=== PATIENT | male | born 1950 | race Caucasian/White ===

== ENCOUNTER → 2017-02-27 | Outpatient (CLI) | payer BC | LOC: RAD 12:06 | PROVIDERS: ATTEND Urology | DX: N20.0 Calculus of kidney (principal); R31.29 Other microscopic hematuria | CPT/HCPCS: 74178; 82565 ==

== ENCOUNTER → 2017-03-30 | Outpatient (CLI) | payer BC ==
[2017-03-30 09:38] LABS: ALANINE AMINOTRANSFERASE 33 U/L (21-72); ALKALINE PHOSPHATASE 63 U/L (38-126); ANION GAP 10 (5-19); ASPARTATE AMINO TRANSFERASE 26 U/L (17-59); BILIRUBIN,DIRECT 0.4 mg/dL (0.0-0.4); BILIRUBIN,TOTAL 1.1 mg/dL (0.2-1.3); BLOOD UREA NITROGEN 18 mg/dL (7-20); CALCIUM 9.3 mg/dL (8.4-10.2); CARBON DIOXIDE 27 mmol/L (22-30); CHLORIDE 104 mmol/L (98-107); CREATININE RESULT 0.96 mg/dL (0.52-1.25); Direct HDL 39 mg/dL (>40); GLUCOSE 119 mg/dL (75-110); POTASSIUM 4.8 mmol/L (3.6-5.0); SODIUM 141.4 mmol/L (137-145); TOTAL PROTEIN 6.5 g/dL (6.3-8.2); TRIGLYCERIDES 273 mg/dL (<150)
[2017-03-30 09:50] LABS: DIRECT LDL 59 mg/dL (<100)
[2017-03-30 09:53] LABS: VLDL CHOLESTEROL 54.6 mg/dL (10-31)
== END ==
LOC: OD 08:29
PROVIDERS: ATTEND Internal Medicine
DX: E78.5 Hyperlipidemia, unspecified (principal); E11.9 Type 2 diabetes mellitus without complications; R10.9 Unspecified abdominal pain; E55.9 Vitamin D deficiency, unspecified; R53.83 Other fatigue
CPT/HCPCS: 36415; 80053; 80061; 82043; 82306; 83036; 84443

== ENCOUNTER 2017-08-11 07:35 | Day surgery (SDC) | payer MEDICARE, BC ==
[~2017-08-11 07:35] MED LIST: EPINEPHRINE INJ 1 MG/10 ML DISP.SYRIN ONE; FENTANYL CITRATE INJ/PF 100 MCG/2 ML AMPUL ONE; FLUMAZENIL INJ 0.5 MG/5 ML VIAL ONE; GLUCAGON,HUMAN RECOMB 1 MG INJ ONE; GLYCOPYRROLATE INJ 0.4 MG/2 ML VIAL ONE; MIDAZOLAM 2 MG/2 ML INJ ONE; NALOXONE HCL INJ/PF 0.4 MG/1 ML SDV ONE; ONDANSETRON HCL INJ/PF 4 MG/2 ML SDV ONE
[2017-08-11 08:06] LABS: HEMATOCRIT 41.9 % (37.9-51.0); HEMOGLOBIN 14.9 g/dL (13.5-17.0); HGB HCT DIFFERENCE 2.8; MEAN CORPUSCULAR HEMOGLOBIN 30.8 pg (27.0-33.4); MEAN CORPUSCULAR HGB CONC 35.5 g/dL (32.0-36.0); MEAN CORPUSCULAR VOLUME 87 fl (80-97); RED BLOOD COUNT 4.84 10^6/uL (4.35-5.55); RED CELL DISTRIBUTION WIDTH 13.2 % (11.5-14.0); WHITE BLOOD COUNT 4.7 10^3/uL (4.0-10.5)
[2017-08-11 08:22] LABS: ALANINE AMINOTRANSFERASE 64 U/L (21-72); ALBUMIN 3.8 g/dL (3.5-5.0); ALKALINE PHOSPHATASE 58 U/L (38-126); ANION GAP 9 (5-19); ASPARTATE AMINO TRANSFERASE 50 U/L (17-59); BILIRUBIN,DIRECT 0.5 mg/dL (0.0-0.4); BILIRUBIN,TOTAL 1.4 mg/dL (0.2-1.3); BLOOD UREA NITROGEN 11 mg/dL (7-20); CALCIUM 9.6 mg/dL (8.4-10.2); CARBON DIOXIDE 28 mmol/L (22-30); CHLORIDE 103 mmol/L (98-107); CREATININE RESULT 0.77 mg/dL (0.52-1.25); GLUCOSE 160 mg/dL (75-110); POTASSIUM 4.3 mmol/L (3.6-5.0); TOTAL PROTEIN 6.3 g/dL (6.3-8.2)
[2017-08-11] MEDS: MIDAZOLAM 2 MG/2 ML INJ ONE ×2 (09:58→10:08)
--- NOTE | 2017-08-11 10:45 | Operative Report ---
Operative Report DATE OF SURGERY: 08/11/17 PREOPERATIVE DIAGNOSIS: Screening for colon malignancy. POSTOPERATIVE DIAGNOSIS: Right colon polyp. Sigmoid diverticulosis. OPERATION: Colonoscopy with snare polypectomy of right colon polyp. SURGEON: HEYDI NOEL ANESTHESIA: Moderate Sedation TISSUE REMOVED OR ALTERED: Right colon polyp COMPLICATIONS: None ESTIMATED BLOOD LOSS: Minimal INTRAOPERATIVE FINDINGS: Half centimeter sessile polyp at the mid right colon. Scattered small diverticuli of the sigmoid colon. PROCEDURE: Informed consent was obtained. Patient was brought to the endoscopy suite. IV sedation with Versed and fentanyl was administered. Digital rectal exam revealed no palpable perianal masses. Endoscope was passed via the patient's anus it was fed to the cecum. Bowel prep was good. Visualization was good. Cecum appeared normal. At the mid right colon there was 1/2 cm sessile polyp which was snare polypectomy need and the specimen retrieved. Remainder of the right colon appeared normal. Transverse colon appeared normal. In colon. Sigmoid colon has scattered diverticuli but otherwise it appeared normal. The rectum appeared normal. Patient tolerated procedure well with no apparent complications and was taken to the recovery area in stable condition. Status post right colon polyp snare polypectomy. Will await biopsy report. Patient was noted on preoperative laboratory testing with elevated total bilirubin at 1.4 with a direct bilirubin of 0.5 with otherwise normal liver function studies. In light of this abnormality will obtain a right upper quadrant ultrasound.
--- NOTE | 2017-08-11 10:47 | PDOC DISCHARGE SUMMARY ---
Discharge Summary (SDC) - Discharge Final Diagnosis: Right colon polyp. Sigmoid diverticulosis. Hyperbilirubinemia. Date of Surgery: 08/11/17 Discharge Date: 08/11/17 Condition: Good Treatment or Instructions: Colonoscopy with snare polypectomy of right colon polyp. May discharge patient home when met discharge criteria. Follow-up with me in 2 weeks. Arrange liver ultrasound as an outpatient prior to follow-up. Referrals: BARB BERMUDEZ MD [Primary Care Provider] - Discharge Diet: As Tolerated Discharge Activity: Activity As Tolerated Report the Following to Your Physician Immediately: Increase in Pain, Unusual Bleeding
[2017-08-11 11:47] VITALS: BP 109/61
== END 2017-08-11 11:37 | disposition home or self-care (01) ==
LOC: END 07:35
PROVIDERS: ATTEND Surgery
PROC: 0DBF8ZX Excision of Right Large Intestine, Via Natural or Artificial Opening Endoscopic, Diagnostic (ICD-10-PCS; principal; 2017-08-11 09:15)
DX: Z12.11 Encounter for screening for malignant neoplasm of colon (principal); K63.5 Polyp of colon; K57.30 Diverticulosis of large intestine without perforation or abscess without bleeding; I10 Essential (primary) hypertension; I25.10 Atherosclerotic heart disease of native coronary artery without angina pectoris; Z79.899 Other long term (current) drug therapy; Z79.82 Long term (current) use of aspirin
CPT/HCPCS: 45385; 36415; 85027; 80053; 88305 ×2; J2250; J3010; J0171; J1610; J2310; J2405; J3490

== ENCOUNTER 2018-08-21 16:13 | Observation (INO) | payer MEDICARE, BC ==
--- NOTE | 2018-08-21 16:35 | ER Document Report ---
ED Medical Screen (RME) - General Chief Complaint: Chest Pain Stated Complaint: CHEST PAIN Time Seen by Provider: 08/21/18 16:33 Mode of Arrival: Ambulatory Information source: Patient TRAVEL OUTSIDE OF THE [place] IN LAST 30 DAYS: No - HPI Patient complains to provider of: cp Onset: Other - pt with extensive cardiac hx with intermittent CP for the past wk. Has taken ASA earlier today - Related Data Allergies/Adverse Reactions: No Known Allergies Allergy (Verified 08/21/18 16:14) Past Medical History - Past Medical History Cardiac Medical History: Reports: Hx Heart Attack, Hx Hypertension Denies: Hx Coronary Artery Disease Pulmonary Medical History: Denies: Hx Asthma, Hx Bronchitis, Hx COPD, Hx Pneumonia Neurological Medical History: Denies: Hx Cerebrovascular Accident, Hx Seizures Musculoskeltal Medical History: Denies Hx Arthritis - Immunizations Hx Diphtheria, Pertussis, Tetanus Vaccination: Yes Physical Exam - Vital signs Vitals: Temp Pulse Resp BP Pulse Ox 98.5 F 61 16 119/47 L 94 08/21/18 16:24 08/21/18 16:24 08/21/18 16:24 08/21/18 16:24 08/21/18 16:24 Course - Vital Signs Vital signs: Temp Pulse Resp BP Pulse Ox 98.5 F 61 16 119/47 L 94 08/21/18 16:24 08/21/18 16:24 08/21/18 16:24 08/21/18 16:24 08/21/18 16:24 Doctor's Discharge - Discharge Referrals: HEYDI NOEL MD [Primary Care Provider] - Follow up as needed
[2018-08-21 17:02] LABS: ABSOLUTE EOSINOPHILS # (AUTO) 0.1 10^3/uL (0.0-0.6); ABSOLUTE LYMPHOCYTES (AUTO) 1.7 10^3/uL (0.5-4.7); ABSOLUTE MONOCYTES (AUTO) 0.5 10^3/uL (0.1-1.4); ABSOLUTE NEUT (AUTO) 4.1 10^3/uL (1.7-8.2); BASOPHILS % (AUTO) 0.4 % (0-2); EOSINOPHILS % (AUTO) 2.2 % (0-6); HEMATOCRIT 45.4 % (37.9-51.0); HEMOGLOBIN 15.8 g/dL (13.5-17.0); LYMPHOCYTES % (AUTO) 26.6 % (13-45); MEAN CORPUSCULAR HEMOGLOBIN 29.6 pg (27.0-33.4); MEAN CORPUSCULAR HGB CONC 34.8 g/dL (32.0-36.0); MEAN CORPUSCULAR VOLUME 85 fl (80-97); MONOCYTES % (AUTO) 7.1 % (3-13); PLATELET COUNT 133 10^3/uL (150-450); RED BLOOD COUNT 5.34 10^6/uL (4.35-5.55); RED CELL DISTRIBUTION WIDTH 13.4 % (11.5-14.0); SEGMENTED NEUTROPHILS % (AUTO) 63.7 % (42-78); TOTAL CELLS COUNTED % (AUTO) 100 %; WHITE BLOOD COUNT 6.4 10^3/uL (4.0-10.5)
[2018-08-21 17:18] LABS: ALANINE AMINOTRANSFERASE 41 U/L (21-72); ALBUMIN 4.2 g/dL (3.5-5.0); ALKALINE PHOSPHATASE 71 U/L (38-126); ANION GAP 8 (5-19); ASPARTATE AMINO TRANSFERASE 38 U/L (17-59); BILIRUBIN,DIRECT 0.3 mg/dL (0.0-0.4); BILIRUBIN,TOTAL 1.3 mg/dL (0.2-1.3); BLOOD UREA NITROGEN 25 mg/dL (7-20); CALCIUM 9.7 mg/dL (8.4-10.2); CARBON DIOXIDE 33 mmol/L (22-30); CHLORIDE 102 mmol/L (98-107); CREATINE KINASE 277 U/L (55-170); GLUCOSE 143 mg/dL (75-110); POTASSIUM 4.9 mmol/L (3.6-5.0); TOTAL PROTEIN 7.3 g/dL (6.3-8.2)
[2018-08-21 17:30] LABS: CREATINE KINASE MB 3.84 ng/mL (<4.55)
[2018-08-21 17:33] LABS: TROPONIN I 0.059 ng/mL
--- NOTE | 2018-08-21 17:36 | RADIOLOGY REPORT (SQ) ---
EXAM DESCRIPTION: CHEST 2 VIEWS COMPLETED DATE/TIME: 08/21/2018 5:11 pm REASON FOR STUDY: cp COMPARISON: None. EXAM PARAMETERS: NUMBER OF VIEWS: two views TECHNIQUE: Digital Frontal and Lateral radiographic views of the chest acquired. RADIATION DOSE: NA LIMITATIONS: none FINDINGS: LUNGS AND PLEURA: No opacities, masses or pneumothorax. No pleural effusion. MEDIASTINUM AND HILAR STRUCTURES: No masses or contour abnormalities. HEART AND VASCULAR STRUCTURES: Heart normal size. No evidence for failure. BONES: No acute findings. HARDWARE: CABG. OTHER: No other significant finding. IMPRESSION: NO ACUTE RADIOGRAPHIC FINDING IN THE CHEST. TECHNICAL DOCUMENTATION: JOB ID: [id number] [id number] 2010 [employer]- All Rights Reserved Reading location - IP/workstation name: [facility]
--- NOTE | 2018-08-21 18:06 | ER Document Report ---
ED Cardiac <THOR LANCASTER - Last Filed: 08/21/18 19:33> - General Mode of Arrival: Ambulatory TRAVEL OUTSIDE OF THE [place] IN LAST 30 DAYS: No <MERY STEWART - Last Filed: 08/21/18 20:21> - General Chief Complaint: Chest Pain Stated Complaint: CHEST PAIN Time Seen by Provider: 08/21/18 16:33 Notes: [age]-year-old male patient reports about a 2-week history of exertional chest pain. There is no discomfort when he is at rest. There is no discomfort with walking. He did notice pain with exertion such as trying to push a push mower, or doing any lifting. He did have a heart attack in 2000 and had a 6 vessel bypass at that time in [place]. 3 years ago he had chest pain and had one stent placed at [facility]. There is no particular event that prompted him to come to the emergency room today. (THOR LANCASTER) - Related Data Allergies/Adverse Reactions: No Known Allergies Allergy (Verified 08/21/18 16:14) Past Medical History - Social History Smoking Status: Former Smoker Frequency of alcohol use: None - Quit 30 years ago <THOR LANCASTER - Last Filed: 08/21/18 19:33> - General Information source: Patient - Social History Smoking Status: Former Smoker - quit 30 years ago Chew tobacco use (# tins/day): No Frequency of alcohol use: None Drug Abuse: None Lives with: Family Family History: Reviewed & Not Pertinent Patient has suicidal ideation: No Patient has homicidal ideation: No - Past Medical History Cardiac Medical History: Reports: Hx Heart Attack, Hx Hypertension Past Surgical History: Reports: Hx Cardiac Catheterization - Stent, Hx Cardiac Surgery - Open Heart Surgery, bypass x6, Hx Cholecystectomy - Immunizations Hx Diphtheria, Pertussis, Tetanus Vaccination: Yes <MERY STEWART - Last Filed: 08/21/18 20:21> Review of Systems - Review of Systems Constitutional: No symptoms reported EENT: No symptoms reported Cardiovascular: See HPI, Chest pain Respiratory: See HPI, Short of breath Gastrointestinal: No symptoms reported Genitourinary: No symptoms reported Male Genitourinary: No symptoms reported Musculoskeletal: No symptoms reported Skin: No symptoms reported Hematologic/Lymphatic: No symptoms reported Neurological/Psychological: No symptoms reported -: Yes All other systems reviewed and negative <MERY STEWART - Last Filed: 08/21/18 20:21> Physical Exam <THOR LANCASTER - Last Filed: 08/21/18 19:33> <MERY STEWART - Last Filed: 08/21/18 20:21> - Vital signs Vitals: Temp Pulse Resp BP Pulse Ox 98.5 F 61 16 119/47 L 94 08/21/18 16:24 08/21/18 16:24 08/21/18 16:24 08/21/18 16:24 08/21/18 16:24 - Notes Notes: Physical Exam: General: Alert, appears well. HEENT: Normocephalic. Atraumatic. PERRL. Extraocular movements intact. Oropharynx clear. Neck: Supple. Non-tender. Respiratory: No respiratory distress. Clear and equal breath sounds bilaterally. Cardiovascular: Regular rate and rhythm. Healed old medial sternotomy scar consistent with surgical history. Abdominal: Obese. Non-tender. No distension. Normal Bowel Sounds. Back: Non-tender. No deformity or step off. Extremities: Moves all four extremities. Upper extremities: Normal inspection. Normal ROM. Lower extremities: Normal inspection. No edema. Normal ROM. Neurological: Normal cognition. AAOx4. Normal speech. Psychological: Normal affect. Normal Mood. Skin: Warm. Dry. Normal color. (MERY STEWART) Course - Laboratory Result Diagrams: 08/21/18 16:45 08/21/18 16:45 - Diagnostic Test Radiology reviewed: Image reviewed, Reports reviewed - Chest x-ray does not show any acute abnormality - EKG Interpretation by Me EKG shows normal: Sinus rhythm, [place], Intervals, QRS Complexes, ST-T Waves Rate: Normal - 65 Rhythm: NSR When compared to previous EKG there are: Previous EKG unavailable - Consults Dr. Andino Time consulted: 19:30 Consulted provider: will come to ER <THOR LANCASTER - Last Filed: 08/21/18 19:33> - Laboratory Result Diagrams: 08/21/18 16:45 08/21/18 16:45 <MERY STEWART - Last Filed: 08/21/18 20:21> - Vital Signs Vital signs: Temp Pulse Resp BP Pulse Ox 98.5 F 61 20 125/63 93 08/21/18 16:24 10/13/18 16:24 08/21/18 17:13 08/21/18 17:13 08/21/18 17:13 - Laboratory Laboratory results interpreted by me: 08/21/18 08/21/18 16:45 16:45 Plt Count 133 L Carbon Dioxide 33 H BUN 25 H Glucose 143 H Creatine Kinase 277 H Discharge - Discharge Admitting Provider: Hospitalist Unit Admitted: Telemetry <THOR LANCASTER - Last Filed: 08/21/18 19:33> <MERY STEWART - Last Filed: 08/21/18 20:21> - Discharge Clinical Impression: Exertional chest pain Coronary artery disease Qualifiers: Coronary Disease-Associated Artery/Lesion type: unspecified vessel or lesion type [place] vs. transplanted heart: [place] heart Associated angina: angina presence unspecified Qualified Code(s): I25.10 - Atherosclerotic heart disease of [place] coronary artery without angina pectoris Condition: Stable Disposition: ADMITTED OBSERVATION Scribe Attestation: 08/21/18 19:29 I personally performed the services described in the documentation, reviewed and edited the documentation which was dictated to the scribe in my presence, and it accurately records my words and actions. (THOR LANCASTER) Scribe Documentation - Scribe Written by Johne:: Michel Modi, 08/21/20182020 acting as scribe for :: Tana <MERY STEWART - Last Filed: 08/21/18 20:21>
[2018-08-21] MEDS ORDERED: LACTULOSE SYRUP 20 GM/30 ML UDCUP PO ONE ×2 (19:33→22:15)
[2018-08-21] MEDS ORDERED: MAG HYDROX/AL HYDROX/SIMETH SUSP 30 ML UDCUP PO PRN (19:34)
[2018-08-21] MEDS ORDERED: NITROGLYCERIN 0.4 MG/TAB 25 TAB/BOTTLE SL PRN (19:34)
--- NOTE | 2018-08-21 20:25 | PDOC H&P ---
History of Present Illness Admission Date/PCP: 08/21/18 19:38 KOLTON VALENCIA MD Patient complains of: Chest pain History of Present Illness: MARIAM ALFARO is a 68 year old male with a past medical history of hypertriglyceridemia, obesity, coronary artery disease status post 6 vessel bypass graft 2000 and subsequent stent 3 years ago. Patient presents with 3 weeks of increasing frequency and intensity of exertional chest pain which is 3 out of 5 intensity, radiating to the neck, occurring while pushing a mower or using a trailer bre. Symptoms are associated with some diaphoresis, no palpitations, nausea vomiting or shortness of breath. He denies recent change in medications and otherwise feels well. In the emergency room he has an unremarkable workup and is referred to the hospitalist for evaluation. Per the patient his last cardiac evaluation was an unremarkable Cardiolite stress test 18 months ago with his dock manager Dr. Domingo. Past Medical History Cardiac Medical History: Reports: Myocardial Infarction, Hypertension Denies: Coronary Artery Disease Pulmonary Medical History: Denies: Asthma, Bronchitis, Chronic Obstructive Pulmonary Disease (COPD), Pneumonia Neurological Medical History: Denies: Seizures Musculoskeltal Medical History: Denies: Arthritis Hematology: Denies: Anemia Past Surgical History Past Surgical History: Reports: Cardiac Catheterization - Stent, Cholecystectomy , Coronary Artery Bypass Graft, Coronary Stent Social History Information Source: Patient Lives with: Spouse/Significant other Smoking Status: Former Smoker Frequency of Alcohol Use: None Hx Recreational Drug Use: No Drugs: None - Advance Directive Resuscitation Status: Full Code Family History Family History: CAD Parental Family History Reviewed: Yes Children Family History Reviewed: Yes Sibling(s) Family History Reviewed.: Yes Medication/Allergy Home Medications: Amlodipine Besylate/Benazepril [Amlodipine-Benazepril 10-40 mg] 1 cap PO DAILY 08/11/17 Aspirin [Aspirin EC] 81 mg PO DAILY 08/11/17 Carbamazepine [Tegretol] 200 mg PO PRN PRN 08/11/17 Curamin 1 tab PO TID 08/11/17 Ergocalciferol (Vitamin D2) [Vitamin D2] 50,000 unit PO ASDIR PRN 08/11/17 Fish Oil/Dha/Epa [Fish Oil 1,200 mg Fish Oil] 1 each PO DAILY 08/11/17 Gabapentin 800 mg PO TID 08/11/17 Hydrochlorothiazide 25 mg PO DAILY 08/11/17 Indomethacin [Indocin 25 mg Capsule] 25 mg PO PRN PRN 08/11/17 Isosorbide Mononitrate [Isosorbide Mononitrate ER] 60 mg PO DAILY 08/11/17 Magnesium Oxide [Magnesium] 600 mg PO DAILY 08/11/17 Metoprolol Succinate 50 mg PO DAILY 08/11/17 Mucus Relief 1 tab PO PRN PRN 08/11/17 Multivitamin [Multivitamins] 1 each PO DAILY 08/11/17 Nitroglycerin [Nitrostat] 0.4 mg SL ASDIR PRN 08/11/17 Pantoprazole Sodium [Protonix] 40 mg PO DAILY 08/11/17 Paroxetine HCl [Paxil] 10 mg PO DAILY 08/11/17 Tramadol HCl 50 mg PO PRN PRN 08/11/17 Allergies/Adverse Reactions: No Known Allergies Allergy (Verified 08/21/18 16:14) Review of Systems Constitutional: ABSENT: chills, fever(s), headache(s), weight gain, weight loss Eyes: ABSENT: visual disturbances Ears: ABSENT: hearing changes Cardiovascular: ABSENT: chest pain, dyspnea on exertion, edema, orthropnea, palpitations Respiratory: ABSENT: cough, hemoptysis Gastrointestinal: ABSENT: abdominal pain, constipation, diarrhea, hematemesis, hematochezia, nausea, vomiting Genitourinary: ABSENT: dysuria, hematuria Musculoskeletal: ABSENT: joint swelling Integumentary: ABSENT: rash, wounds Neurological: ABSENT: abnormal gait, abnormal speech, confusion, dizziness, focal weakness, syncope Psychiatric: ABSENT: anxiety, depression, homidical ideation, suicidal ideation Endocrine: ABSENT: cold intolerance, heat intolerance, polydipsia, polyuria Hematologic/Lymphatic: ABSENT: easy bleeding, easy bruising Physical Exam Vital Signs: Temp Pulse Resp BP Pulse Ox 98.5 F 61 20 125/63 93 08/21/18 16:24 08/21/18 16:24 08/21/18 17:13 08/21/18 17:13 08/21/18 17:13 General appearance: PRESENT: no acute distress, cooperative, morbidly obese, well-developed, well-nourished Head exam: PRESENT: atraumatic, normocephalic Eye exam: PRESENT: conjunctiva pink, EOMI, PERRLA. ABSENT: scleral icterus Ear exam: PRESENT: normal external ear exam Mouth exam: PRESENT: moist, tongue midline Neck exam: ABSENT: carotid bruit, JVD, lymphadenopathy, thyromegaly Respiratory exam: PRESENT: clear to auscultation aubrey. ABSENT: rales, rhonchi, wheezes Cardiovascular exam: PRESENT: RRR. ABSENT: diastolic murmur, rubs, systolic murmur Pulses: PRESENT: normal dorsalis pedis pul Vascular exam: PRESENT: normal capillary refill GI/Abdominal exam: PRESENT: normal bowel sounds, soft. ABSENT: distended, guarding, mass, organolmegaly, rebound, tenderness Rectal exam: PRESENT: deferred Extremities exam: PRESENT: full ROM. ABSENT: calf tenderness, clubbing, pedal edema Neurological exam: PRESENT: alert, awake, oriented to person, oriented to place , oriented to time, oriented to situation, CN II-XII grossly intact. ABSENT: motor sensory deficit Psychiatric exam: PRESENT: appropriate affect, normal mood. ABSENT: homicidal ideation, suicidal ideation Skin exam: PRESENT: dry, intact, warm. ABSENT: cyanosis, rash Results Impressions: Chest X-Ray 08/21/18 16:33 IMPRESSION: NO ACUTE RADIOGRAPHIC FINDING IN THE CHEST. Assessment & Plan - Diagnosis (1) Unstable angina Is this a current diagnosis for this admission?: Yes Plan: Chest pain care set, nitroglycerin as needed, evaluate risks for medical management of coronary artery disease. Cardiolite stress test, (2) Dyslipidemia Is this a current diagnosis for this admission?: Yes Plan: Statin, follow-up lipid profile (3) Hyperglycemia Is this a current diagnosis for this admission?: Yes Plan: Concern for undiagnosed diabetes, follow-up A1c (4) Coronary artery disease Qualifiers: Coronary Disease-Associated Artery/Lesion type: unspecified vessel or lesion type [place] vs. transplanted heart: [place] heart Associated angina: angina presence unspecified Qualified Code(s): I25.10 - Atherosclerotic heart disease of [place] coronary artery without angina pectoris Is this a current diagnosis for this admission?: Yes Plan: Please see #1, consult patient's dock manager Dr. Domingo - Time Time Spent: 30 to 50 Minutes
--- NOTE | 2018-08-21 20:51 | EKG REPORT ---
SEVERITY:- NORMAL ECG - SINUS RHYTHM : Confirmed by: Loretta Domingo MD 21-Aug-2018 20:50:57
[2018-08-21] MEDS: GABAPENTIN 400 MG CAPSULE PO SCH (21:45)
[2018-08-21 23:37] LABS: CREATINE KINASE MB 2.89 ng/mL (<4.55); TROPONIN I 0.064 ng/mL
[2018-08-22 05:44] LABS: ABSOLUTE EOSINOPHILS # (AUTO) 0.2 10^3/uL (0.0-0.6); ABSOLUTE LYMPHOCYTES (AUTO) 1.9 10^3/uL (0.5-4.7); ABSOLUTE MONOCYTES (AUTO) 0.6 10^3/uL (0.1-1.4); BASOPHILS % (AUTO) 0.5 % (0-2); EOSINOPHILS % (AUTO) 3.6 % (0-6); HEMATOCRIT 43.9 % (37.9-51.0); HEMOGLOBIN 15.2 g/dL (13.5-17.0); LYMPHOCYTES % (AUTO) 41.1 % (13-45); MEAN CORPUSCULAR HEMOGLOBIN 29.3 pg (27.0-33.4); MEAN CORPUSCULAR HGB CONC 34.7 g/dL (32.0-36.0); MEAN CORPUSCULAR VOLUME 85 fl (80-97); MONOCYTES % (AUTO) 12.1 % (3-13); PLATELET COUNT 110 10^3/uL (150-450); RED CELL DISTRIBUTION WIDTH 13.5 % (11.5-14.0); SEGMENTED NEUTROPHILS % (AUTO) 42.7 % (42-78); TOTAL CELLS COUNTED % (AUTO) 100 %; WHITE BLOOD COUNT 4.6 10^3/uL (4.0-10.5)
[2018-08-22 06:00] LABS: ANION GAP 10 (5-19); BLOOD UREA NITROGEN 20 mg/dL (7-20); CALCIUM 9.5 mg/dL (8.4-10.2); CARBON DIOXIDE 27 mmol/L (22-30); CHLORIDE 105 mmol/L (98-107); CHOLESTEROL 161.99 mg/dL (0-200); CREATINE KINASE 246 U/L (55-170); GLUCOSE 121 mg/dL (75-110); POTASSIUM 4.2 mmol/L (3.6-5.0); SODIUM 141.9 mmol/L (137-145); TRIGLYCERIDES 221 mg/dL (<150)
[2018-08-22 06:11] LABS: DIRECT LDL 72 mg/dL (<100)
[2018-08-22 06:13] LABS: CREATINE KINASE MB 2.63 ng/mL (<4.55); TROPONIN I 0.049 ng/mL
[2018-08-22 06:16] LABS: VLDL CHOLESTEROL 44.2 mg/dL (10-31)
[2018-08-22] MEDS: GABAPENTIN 400 MG CAPSULE PO SCH ×3 (06:46→21:32)
[2018-08-22] MEDS: METOPROLOL SUCCINATE 50 MG TAB.SR.24H PO SCH (09:37)
[2018-08-22] MEDS: HYDROCHLOROTHIAZIDE 25 MG TABLET PO SCH (09:40)
[2018-08-22] MEDS: BENAZEPRIL HCL 20 MG TABLET PO SCH (09:40)
[2018-08-22] MEDS: MAGNESIUM OXIDE 400 MG TABLET PO SCH (09:40)
[2018-08-22] MEDS: LANSOPRAZOLE 30 MG TAB.RAP.DR PO SCH (09:41)
[2018-08-22] MEDS: ASPIRIN 81 MG TABLET, ENT COATED PO SCH (09:41)
[2018-08-22] MEDS: ISOSORBIDE MONONITRATE 30 MG TAB.ER.24H PO SCH (09:41)
[2018-08-22] MEDS ORDERED: (PENDING PHARMACY ID) (Amlodipine Besylate/Benazepril [Amlodipine-Benazepril 10-40 Mg] 1 C PO SCH (10:00)
[2018-08-22] MEDS ORDERED: AMLODIPINE BESYLATE 10 MG TABLET PO SCH (10:00)
[2018-08-22 11:34] LABS: CREATINE KINASE MB 2.66 ng/mL (<4.55); TROPONIN I 0.036 ng/mL
--- NOTE | 2018-08-22 16:02 | PDOC CONSULTATION ---
Consultation Consult Date: 08/22/18 Attending physician:: INO CASANOVA Consult reason:: Chest pain History of Present Illness Admission Date/PCP: 08/21/18 19:38 OKLTON VALENCIA MD Patient complains of: Chest pain History of Present Illness: MARIAM ALFARO is a 68 year old male with a past medical history of hypertriglyceridemia, obesity, coronary artery disease status post 6 vessel bypass graft 2000 and subsequent stent 3 years ago. Patient presents with 3 weeks of increasing frequency and intensity of exertional chest pain which is 3 out of 5 intensity, radiating to the neck, occurring while pushing a mower or using a trailer bre. Symptoms are associated with some diaphoresis, no palpitations, nausea vomiting or shortness of breath. He denies recent change in medications and otherwise feels well. In the emergency room he has an unremarkable workup and is referred to the hospitalist for evaluation. 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 Domingo. This history was reviewed and confirmed. Patient admits to history of snoring. Patient has no recent sleep evaluation. Discussed association of sleep apnea with increased cardiovascular event risk. Past Medical History Cardiac Medical History: Reports: Myocardial Infarction, Hypertension Denies: Coronary Artery Disease Pulmonary Medical History: Denies: Asthma, Bronchitis, Chronic Obstructive Pulmonary Disease (COPD), Pneumonia Neurological Medical History: Denies: Seizures Musculoskeltal Medical History: Denies: Arthritis Psychiatric Medical History: Denies: Depression Hematology: Denies: Anemia Past Surgical History Past Surgical History: Reports: Cardiac Catheterization - Stent, Cholecystectomy , Coronary Artery Bypass Graft, Coronary Stent Social History Information Source: Patient Lives with: Spouse/Significant other Smoking Status: Former Smoker Last Time Smoked: 11/09/1989 Frequency of Alcohol Use: None Hx Recreational Drug Use: No Drugs: None Hx Prescription Drug Abuse: No - Advance Directive Resuscitation Status: Full Code Surrogate healthcare decision maker:: Patient's is the surrogate decision-maker Family History Family History: CAD Parental Family History Reviewed: Yes Children Family History Reviewed: Yes Sibling(s) Family History Reviewed.: Yes - Multiple family members have premature CAD. Medication/Allergy Home Medications: Amlodipine Besylate/Benazepril [Amlodipine-Benazepril 10-40 mg] 1 cap PO DAILY 08/11/17 Aspirin [Aspirin EC] 81 mg PO DAILY 08/11/17 Ergocalciferol (Vitamin D2) [Vitamin D2] 50,000 unit PO FINNEY@1000 PRN 08/11/17 Fish Oil/Dha/Epa [Fish Oil 1,200 mg Fish Oil] 1 each PO DAILY 08/11/17 Gabapentin 800 mg PO TID 08/11/17 Hydrochlorothiazide 25 mg PO DAILY 08/11/17 Isosorbide Mononitrate [Isosorbide Mononitrate ER] 60 mg PO DAILY 08/11/17 Magnesium Oxide [Magnesium] 600 mg PO DAILY 08/11/17 Metoprolol Succinate 50 mg PO DAILY 08/11/17 Multivitamin [Multivitamins] 1 each PO DAILY 08/11/17 Nitroglycerin [Nitrostat] 0.4 mg SL Q5HP PRN 08/11/17 Pantoprazole Sodium [Protonix] 40 mg PO DAILY PRN 08/11/17 Paroxetine HCl [Paxil] 10 mg PO DAILY 08/11/17 Tramadol HCl 50 mg PO DAILYP PRN 08/11/17 Allergies/Adverse Reactions: No Known Allergies Allergy (Verified 08/21/18 16:14) Review of Systems Review of Systems: Please see history of present illness and past medical history as wall. Constitutional: No fever or chills reported. Head : No recent chronic headaches, recent head injury. Eyes: No recent eye pain, diplopia, redness, discharge, acute visual changes. Ears: No recent chronic ear pain, acute hearing loss, ear discharge. Oral cavity: No recent ulcerations, bleeding, oral cavity discomfort. Neck: No recent acute neck pain reported. Hematologic: No recent easy bruising or bleeding. Lymphatic: No recent lymph node enlargement reported. Cardiovascular system review: See history of present illness. Respiratory system review: No hemoptysis or blood clots in the lungs reported. Mild Shortness of breath on exertion Gastrointestinal system review: Negative for any recent acute hematemesis, melena. Genitourinary system review: No recent acute or chronic hematuria, flank pain, UTI etc. reported. Skin system review: Negative for any recent abnormal bruising, no rash, no pruritus reported. Neurologic: No prior history of strokes, mini strokes, seizure disorder. Psychologic: No history of major psychosis or major depression reported. Musculoskeletal: Minor aches and pains reported. No acute joint swelling reported. Endocrine: No recent polyuria, polydipsia, recent heat or cold intolerance. Physical Exam Vital Signs: Temp Pulse Resp BP Pulse Ox 97.7 F 53 L 16 102/60 96 08/22/18 15:28 08/22/18 15:28 08/22/18 15:28 08/22/18 15:28 08/22/18 15:28 Intake & Output 08/21/18 08/22/18 08/23/18 06:59 06:59 06:59 Weight 125.9 kg Exam: GENERAL: well-nourished and in no acute distress. Alert and oriented x3 HEAD: Atraumatic, normocephalic. EYES: Pupils equal round and reactive to light, extraocular movements intact, sclera anicteric, conjunctiva are normal. ENT: TMs normal, nares patent, oropharynx clear without exudates. Moist mucous membranes. No oral ulcerations or bleeding gums noted NECK: supple without lymphadenopathy. Trachea is central. No cervical or axillary lymphadenopathy noted. Carotids are 2+, JVD WNL LUNGS: Respiration seems nonlabored, no significant accessory muscle action noted. Breath sounds clear to auscultation bilaterally and equal noted. No wheezes rales or rhonchi noted. No significant dullness noted on percussion. CHEST: Palpation of the chest wall shows no significant chest wall tenderness. 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 ABDOMEN: Soft, no significant tenderness appreciated, normoactive bowel sounds. No guarding, no rebound. No rigidity noted . No masses appreciated. EXTREMITIES: Pedal pulses are 1-2+, no calf tenderness noted. No clubbing or cyanosis. negative pedal edema noted NEUROLOGICAL: Focused neurological exam showed no significant neurologic deficit. Normal speech, no focal weakness appreciated. PSYCH: Normal mood, normal affect. Judgment and insight within normal limits. SKIN: No significant ecchymosis, skin is noted to be warm. MUSCULOSKELETAL EXAM: No significant acute joint swelling noted. Results Laboratory Results: 08/22/18 05:12 08/22/18 05:12 08/22/18 08/22/18 05:12 05:12 WBC 4.6 RBC 5.20 Hgb 15.2 Hct 43.9 MCV 85 MCH 29.3 MCHC 34.7 RDW 13.5 Plt Count 110 L Seg Neutrophils % 42.7 Lymphocytes % 41.1 Monocytes % 12.1 Eosinophils % 3.6 Basophils % 0.5 Absolute Neutrophils 2.0 Absolute Lymphocytes 1.9 Absolute Monocytes 0.6 Absolute Eosinophils 0.2 Absolute Basophils 0.0 Sodium 141.9 Potassium 4.2 Chloride 105 Carbon Dioxide 27 Anion Gap 10 BUN 20 Creatinine 0.85 Est GFR ( Amer) > 60 Est GFR (Non-Af Amer) > 60 Glucose 121 H Calcium 9.5 Triglycerides 221 H Cholesterol 161.99 LDL Cholesterol Direct 72 VLDL Cholesterol 44.2 H HDL Cholesterol 30 L 08/21/18 08/22/18 08/22/18 22:57 05:12 05:12 Creatine Kinase 246 H CK-MB (CK-2) 2.89 2.63 Troponin I 0.064 0.049 08/22/18 10:49 Creatine Kinase CK-MB (CK-2) 2.66 Troponin I 0.036 EKG Comments: Sinus rhythm, no acute ST-T wave changes are noted Impressions: Chest X-Ray 08/21/18 16:33 IMPRESSION: NO ACUTE RADIOGRAPHIC FINDING IN THE CHEST. Assessment & Plan - Diagnosis (1) Unstable angina Is this a current diagnosis for this admission?: Yes (2) Coronary artery disease Qualifiers: Coronary Disease-Associated Artery/Lesion type: unspecified vessel or lesion type [place] vs. transplanted heart: [place] heart Associated angina: angina presence unspecified Qualified Code(s): I25.10 - Atherosclerotic heart disease of [place] coronary artery without angina pectoris Is this a current diagnosis for this admission?: Yes (3) Dyslipidemia Is this a current diagnosis for this admission?: Yes (5) Hyperglycemia Is this a current diagnosis for this admission?: Yes - Notes Notes: Unstable angina: Patient history is suggestive of it. At this point medical management is being optimized. Will have low threshold for referral to tertiary care for heart catheterization due to known history of CAD. Have added Ranexa 500 mg p.o. twice daily, to be quickly increased to 1000 mg p.o. twice daily. Have also added high potency statin therapy. For risk stratification will order a 2D echo. CAD: Patient has significant CAD. Medical management is being optimized. Dyslipidemia: Patient has high triglycerides. Have increased Lipitor to 80 mg p.o. nightly. Exertional chest pain: Most likely unstable angina. Hyperglycemia: Recommend good control of blood sugar. - Time Time Spent: 30 to 50 Minutes - CODE STATUS was discussed, patient remains full code. Surrogate decision-maker unchanged. Multiple medical problems were addressed. More than 50% of the time spent coordinating care, discussing management plans with involved caregivers. Management plans discussed with involved personnels. Medical decision making was of moderate to high complexity , patient's has multiple comorbidities. Medications reviewed and adjusted accordingly: Yes
[2018-08-22] MEDS: RANOLAZINE 500 MG TAB.SR.12H PO SCH (17:19)
--- NOTE | 2018-08-22 18:34 | PDOC PROGRESS REPORT ---
Subjective Progress Note for:: 08/22/18 Subjective:: Mr. Ngo is a 68 year old male with a past medical history of CAD with prior 6 vessel bypass graft 2000 and subsequent stent 3 years ago, obesity and hyperlipidemia-intolerant to statin who presented with exertional chest pain. He was admitted to rule out ACS. 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 Domingo. No acute event overnight. Upon encounter, he appears comfortable in bed. He denies chest pain or SOB at the moment. When asked why he is not on statin, he says he has been tried on 3 different statins before and reportedly had muscle injury. He says he does not want to try any statin as he is not amenable to the risk of muscle and possible kidney injury. Reason For Visit: CHEST PAIN CAD Physical Exam Vital Signs: Temp Pulse Resp BP Pulse Ox 97.7 F 53 L 16 102/60 96 08/22/18 15:28 08/22/18 15:28 08/22/18 15:28 08/22/18 15:28 08/22/18 15:28 Intake & Output 08/21/18 08/22/18 08/23/18 06:59 06:59 06:59 Weight 277 lb 8.992 oz General appearance: PRESENT: no acute distress, morbidly obese Head exam: PRESENT: atraumatic, normocephalic Eye exam: PRESENT: conjunctiva pink, EOMI, PERRLA. ABSENT: scleral icterus Ear exam: PRESENT: normal external ear exam Mouth exam: PRESENT: moist, tongue midline Neck exam: ABSENT: carotid bruit, JVD, lymphadenopathy, thyromegaly Respiratory exam: PRESENT: clear to auscultation aubrey. ABSENT: rales, rhonchi, wheezes Cardiovascular exam: PRESENT: RRR. ABSENT: diastolic murmur, rubs, systolic murmur Pulses: PRESENT: normal dorsalis pedis pul GI/Abdominal exam: PRESENT: normal bowel sounds, soft. ABSENT: distended, guarding, mass, organolmegaly, rebound, tenderness Rectal exam: PRESENT: deferred Neurological exam: PRESENT: alert, awake, oriented to person, oriented to place , oriented to time, oriented to situation, CN II-XII grossly intact. ABSENT: motor sensory deficit Results Laboratory Results: 08/22/18 05:12 08/22/18 05:12 08/22/18 08/22/18 05:12 05:12 WBC 4.6 RBC 5.20 Hgb 15.2 Hct 43.9 MCV 85 MCH 29.3 MCHC 34.7 RDW 13.5 Plt Count 110 L Seg Neutrophils % 42.7 Lymphocytes % 41.1 Monocytes % 12.1 Eosinophils % 3.6 Basophils % 0.5 Absolute Neutrophils 2.0 Absolute Lymphocytes 1.9 Absolute Monocytes 0.6 Absolute Eosinophils 0.2 Absolute Basophils 0.0 Sodium 141.9 Potassium 4.2 Chloride 105 Carbon Dioxide 27 Anion Gap 10 BUN 20 Creatinine 0.85 Est GFR ( Amer) > 60 Est GFR (Non-Af Amer) > 60 Glucose 121 H Calcium 9.5 Triglycerides 221 H Cholesterol 161.99 LDL Cholesterol Direct 72 VLDL Cholesterol 44.2 H HDL Cholesterol 30 L 08/21/18 08/22/18 08/22/18 22:57 05:12 05:12 Creatine Kinase 246 H CK-MB (CK-2) 2.89 2.63 Troponin I 0.064 0.049 08/22/18 10:49 Creatine Kinase CK-MB (CK-2) 2.66 Troponin I 0.036 Impressions: Chest X-Ray 08/21/18 16:33 IMPRESSION: NO ACUTE RADIOGRAPHIC FINDING IN THE CHEST. Assessment & Plan - Diagnosis (1) Exertional chest pain Is this a current diagnosis for this admission?: Yes Plan: Patient has been chest pain free since admission. Troponins are trending down. EKG does not show signs of acute ischemia or infarction. He was started on Ranexa this morning by cardio. He refused to be started on statin as mentioned above. Will further discuss plan with cardiology as patient is at high risk for coronary events given his history of CABG and stenting. (2) Coronary artery disease Qualifiers: Coronary Disease-Associated Artery/Lesion type: unspecified vessel or lesion type [place] vs. transplanted heart: [place] heart Associated angina: angina presence unspecified Qualified Code(s): I25.10 - Atherosclerotic heart disease of [place] coronary artery without angina pectoris Is this a current diagnosis for this admission?: Yes Plan: Continue aspirin. Plavix and Ranexa added today. - Time Time Spent with patient: 15-24 minutes
[2018-08-22 19:43] LABS: ANION GAP 13 (5-19); BLOOD UREA NITROGEN 17 mg/dL (7-20); CALCIUM 9.8 mg/dL (8.4-10.2); CARBON DIOXIDE 27 mmol/L (22-30); CHLORIDE 99 mmol/L (98-107); GLUCOSE 192 mg/dL (75-110); POTASSIUM 4.2 mmol/L (3.6-5.0); SODIUM 138.8 mmol/L (137-145)
--- NOTE | 2018-08-22 19:47 | EKG REPORT ---
SEVERITY:- NORMAL ECG - SINUS RHYTHM : Confirmed by: Loretta Domingo MD 22-Aug-2018 19:47:01
[2018-08-22] MEDS ORDERED: ATORVASTATIN CALCIUM 40 MG TABLET PO SCH (22:00)
[2018-08-22] MEDS ORDERED: ATORVASTATIN CALCIUM 80 MG TABLET PO SCH (22:00)
[2018-08-23] MEDS: GABAPENTIN 400 MG CAPSULE PO SCH (05:22)
[2018-08-23] MEDS: RANOLAZINE 500 MG TAB.SR.12H PO SCH (05:22)
--- NOTE | 2018-08-23 07:53 | EKG REPORT ---
SEVERITY:- ABNORMAL ECG - SINUS RHYTHM PROBABLE ANTEROSEPTAL INFARCT, AGE INDETERM : Confirmed by: Angelito Dixon MD 23-Aug-2018 07:52:46
--- NOTE | 2018-08-23 08:25 | PDOC DISCHARGE SUMMARY ---
General - Admit/Disc Date/PCP Admission Date/Primary Care Provider: 08/21/18 19:38 KOLTON VALENCIA MD Discharge Date: 08/23/18 - Discharge Diagnosis (1) Coronary artery disease Is this a current diagnosis for this admission?: Yes Summary: Discharge home to continue current medications. Follow-up with Dr. Domingo (2) Dyslipidemia Is this a current diagnosis for this admission?: Yes Summary: The patient is willing to try the Lipitor. We will try to add coenzyme Q 10 (3) Hyperglycemia Is this a current diagnosis for this admission?: Yes Summary: His hemoglobin A1c was 5.9. Continue diet (4) Unstable angina Is this a current diagnosis for this admission?: Yes Summary: Continue Ranexa and clopidogrel until seen by cardiology - Additional Information Resuscitation Status: Full Code Discharge Diet: Cardiac, Diabetic Discharge Activity: Activity As Tolerated Prescriptions: Atorvastatin Calcium [Lipitor 40 mg Tablet] 40 mg PO QHS #30 tablet Clopidogrel Bisulfate [Plavix 75 mg Tablet] 75 mg PO DAILY #30 tablet Ranolazine [Ranexa 500 mg Tab.sr] 500 mg PO Q12A #60 tab.sr.12h Home Medications: Amlodipine Besylate/Benazepril [Amlodipine-Benazepril 10-40 mg] 1 cap PO DAILY 08/11/17 Aspirin [Aspirin EC] 81 mg PO DAILY 08/11/17 Ergocalciferol (Vitamin D2) [Vitamin D2] 50,000 unit PO FINNEY@1000 PRN 08/11/17 Fish Oil/Dha/Epa [Fish Oil 1,200 mg Fish Oil] 1 each PO DAILY 08/11/17 Gabapentin 800 mg PO TID 08/11/17 Hydrochlorothiazide 25 mg PO DAILY 08/11/17 Isosorbide Mononitrate [Isosorbide Mononitrate ER] 60 mg PO DAILY 08/11/17 Magnesium Oxide [Magnesium] 600 mg PO DAILY 08/11/17 Metoprolol Succinate 50 mg PO DAILY 08/11/17 Multivitamin [Multivitamins] 1 each PO DAILY 08/11/17 Nitroglycerin [Nitrostat] 0.4 mg SL Q5HP PRN 08/11/17 Pantoprazole Sodium [Protonix] 40 mg PO DAILY PRN 08/11/17 Paroxetine HCl [Paxil] 10 mg PO DAILY 08/11/17 Tramadol HCl 50 mg PO DAILYP PRN 08/11/17 Atorvastatin Calcium [Lipitor 40 mg Tablet] 40 mg PO QHS #30 tablet 08/23/18 Clopidogrel Bisulfate [Plavix 75 mg Tablet] 75 mg PO DAILY #30 tablet 08/23/18 Ranolazine [Ranexa 500 mg Tab.sr] 500 mg PO Q12A #60 tab.sr.12h 08/23/18 History of Present Illness History of Present Illness: MARIAM ALFARO is a 68 year old male Hospital Course Hospital Course: The patient was admitted with an impression of unstable angina. He did spill some enzymes but they have trended down after the hospitalization. He was seen by the cardiology and Ranexa and clopidogrel have been added. The patient did well. He did not have any recurrence of chest pain. 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 Physical Exam Vital Signs: Temp Pulse Resp BP Pulse Ox 97.5 F 50 L 16 122/67 97 08/23/18 07:25 08/23/18 07:25 08/23/18 07:25 08/23/18 07:25 08/23/18 07:25 Intake & Output 08/22/18 08/23/18 08/24/18 06:59 06:59 06:59 Intake Total 955720 Balance 920412 Weight 125.9 kg 126.7 kg General appearance: PRESENT: no acute distress Head exam: PRESENT: atraumatic Eye exam: PRESENT: conjunctiva pink Neck exam: PRESENT: carotid bruit. ABSENT: JVD Respiratory exam: PRESENT: clear to auscultation aubrey Cardiovascular exam: PRESENT: RRR, +S1, +S2 GI/Abdominal exam: PRESENT: normal bowel sounds, soft Extremities exam: PRESENT: full ROM Musculoskeletal exam: PRESENT: ambulatory Neurological exam: PRESENT: alert, awake Results Laboratory Results: 08/22/18 05:12 08/22/18 18:49 08/22/18 18:49 Sodium 138.8 Potassium 4.2 Chloride 99 Carbon Dioxide 27 Anion Gap 13 BUN 17 Creatinine 1.04 Est GFR ( Amer) > 60 Est GFR (Non-Af Amer) > 60 Glucose 192 H Calcium 9.8 Magnesium 1.8 08/21/18 08/22/18 08/22/18 22:57 05:12 05:12 Creatine Kinase 246 H CK-MB (CK-2) 2.89 2.63 Troponin I 0.064 0.049 08/22/18 08/22/18 10:49 18:49 Creatine Kinase CK-MB (CK-2) 2.66 Troponin I 0.036 0.029 Impressions: Chest X-Ray 08/21/18 16:33 IMPRESSION: NO ACUTE RADIOGRAPHIC FINDING IN THE CHEST. Qualifiers - * PATIENT BEING DISCHARGED WITH ANY OF THE FOLLOWING DIAGNOSIS: No
[2018-08-23 08:30] VITALS: BP 133/60
[2018-08-23] MEDS: METOPROLOL SUCCINATE 50 MG TAB.SR.24H PO SCH (09:27)
[2018-08-23] MEDS: HYDROCHLOROTHIAZIDE 25 MG TABLET PO SCH (09:32)
[2018-08-23] MEDS: MAGNESIUM OXIDE 400 MG TABLET PO SCH (09:32)
[2018-08-23] MEDS: ISOSORBIDE MONONITRATE 30 MG TAB.ER.24H PO SCH (09:33)
[2018-08-23] MEDS: BENAZEPRIL HCL 20 MG TABLET PO SCH (09:33)
[2018-08-23] MEDS: ASPIRIN 81 MG TABLET, ENT COATED PO SCH (09:33)
[2018-08-23] MEDS: LANSOPRAZOLE 30 MG TAB.RAP.DR PO SCH (09:33)
[2018-08-23] MEDS ORDERED: AMLODIPINE BESYLATE 5 MG TABLET PO SCH (10:00)
[2018-08-23] MEDS ORDERED: CLOPIDOGREL BISULFATE 75 MG TABLET PO SCH (10:00)
--- NOTE | 2018-08-23 18:16 | PDOC PROGRESS REPORT ---
Subjective Progress Note for:: 08/23/18 Subjective:: Patient seems to be doing better with gradual improvement. Patient has no recurrent chest arm or neck discomfort. Patient denying any PND, orthopnea. Patient had ambulated inside the room and also in the hallway without any precipitation of chest pain. Fidencio Godinez MD already seen the patient and has dictated a discharge summary. Patient denied any sustained palpitations , dizziness, syncope, near syncope. Patient denying any fever chills. Patient denying any other significant discomfort. Patient is maintaining sinus rhythm. Occasional VPCs are noted. Review of systems: Rest review of systems negative. Medications: Medications have been reviewed. Reason For Visit: CHEST PAIN CAD Physical Exam Vital Signs: Temp Pulse Resp BP Pulse Ox 97.5 F 50 L 16 133/60 H 97 08/23/18 08:28 08/23/18 08:28 08/23/18 08:28 08/23/18 08:28 08/23/18 08:28 Intake & Output 08/22/18 08/23/18 08/24/18 06:59 06:59 06:59 Intake Total 365100 Balance 892759 Weight 125.9 kg 126.7 kg Exam: GENERAL: well-nourished and in no acute distress. Alert and oriented x3 HEAD: Atraumatic, normocephalic. EYES: Pupils equal round and reactive to light, extraocular movements intact, sclera anicteric, conjunctiva are normal. ENT: TMs normal, nares patent, oropharynx clear without exudates. Moist mucous membranes. No oral ulcerations or bleeding gums noted NECK: supple without lymphadenopathy. Trachea is central. No cervical or axillary lymphadenopathy noted. Carotids are 2+, JVD WNL LUNGS: Respiration seems nonlabored, no significant accessory muscle action noted. Breath sounds clear to auscultation bilaterally and equal noted. No wheezes rales or rhonchi noted. No significant dullness noted on percussion. CHEST: Palpation of the chest wall shows no significant chest wall tenderness. 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 ABDOMEN: Soft, no significant tenderness appreciated, normoactive bowel sounds. No guarding, no rebound. No rigidity noted . No masses appreciated. EXTREMITIES: Pedal pulses are 1-2+, no calf tenderness noted. No clubbing or cyanosis. negative pedal edema noted NEUROLOGICAL: Focused neurological exam showed no significant neurologic deficit. Normal speech, no focal weakness appreciated. PSYCH: Normal mood, normal affect. Judgment and insight within normal limits. SKIN: No significant ecchymosis, skin is noted to be warm. MUSCULOSKELETAL EXAM: No significant acute joint swelling noted. Results Laboratory Results: 08/22/18 05:12 08/22/18 18:49 08/22/18 18:49 Sodium 138.8 Potassium 4.2 Chloride 99 Carbon Dioxide 27 Anion Gap 13 BUN 17 Creatinine 1.04 Est GFR ( Amer) > 60 Est GFR (Non-Af Amer) > 60 Glucose 192 H Calcium 9.8 Magnesium 1.8 08/21/18 08/22/18 08/22/18 22:57 05:12 05:12 Creatine Kinase 246 H CK-MB (CK-2) 2.89 2.63 Troponin I 0.064 0.049 08/22/18 08/22/18 10:49 18:49 Creatine Kinase CK-MB (CK-2) 2.66 Troponin I 0.036 0.029 EKG Comments: EKG shows sinus rhythm. No acute ST-T wave changes are noted. Impressions: Chest X-Ray 08/21/18 16:33 IMPRESSION: NO ACUTE RADIOGRAPHIC FINDING IN THE CHEST. Assessment & Plan - Diagnosis (1) Unstable angina Is this a current diagnosis for this admission?: Yes (2) Coronary artery disease Qualifiers: Coronary Disease-Associated Artery/Lesion type: unspecified vessel or lesion type [place] vs. transplanted heart: [place] heart Associated angina: angina presence unspecified Qualified Code(s): I25.10 - Atherosclerotic heart disease of [place] coronary artery without angina pectoris Is this a current diagnosis for this admission?: Yes (3) Dyslipidemia Is this a current diagnosis for this admission?: Yes (4) Exertional chest pain Is this a current diagnosis for this admission?: Yes (5) Hyperglycemia Is this a current diagnosis for this admission?: Yes (6) Obesity Qualifiers: Obesity type: unspecified obesity type Obesity classification: unspecified obesity classification Is this a current diagnosis for this admission?: Yes (7) Ventricular ectopic activity Is this a current diagnosis for this admission?: Yes - Notes Notes: Patient was seen in the morning prior to discharge. He claims he did fine overnight. I was called by the hospitalist around 7 PM that patient was noted to have increased ectopic activity from the ventricle but no sustained cardiac dysrhythmia noted. Patient apparently had ambulated and had no symptoms. Patient was seen earlier by patient primary care nurse who has already discharged the patient. Patient is agreeable with this approach. Patient did agree with me to start taking statin therapy as this was strongly recommended. Patient was asked to pretreat himself with CoQ10 and vitamin D. Patient does wish to see me regarding obesity management. Patient was encouraged to also schedule a sleep study as sleep apnea does increase his risk of cardiovascular and cerebrovascular event risk. Patient encouraged to continue to see Dr. Domingo for further cardiology care. Unstable angina: Patient history is suggestive of it. At this point medical management is being optimized. Patient symptoms has been stabilized.. Continue Ranexa 500 mg p.o. twice daily, to be quickly increased to 1000 mg p.o. twice daily. H recommended patient to continue with high potency statin therapy. CAD: Patient has significant CAD. Medical management is being optimized. Dyslipidemia: Patient has high triglycerides. Recommend Lipitor at 40 mg p.o. nightly. Exertional chest pain: Most likely unstable angina. Currently resolved and stabilized. Hyperglycemia: Recommend good control of blood sugar. May benefit from metformin therapy. - Time Time with patient: Greater than 35 minutes - CODE STATUS was discussed, patient remains full code. Surrogate decision-maker unchanged. Multiple medical problems were addressed. More than 50% of the time spent coordinating care, discussing management plans with involved caregivers. Management plans discussed with involved personnels. Medical decision making was of moderate to high complexity, patient's has multiple comorbidities. Medications reviewed and adjusted accordingly: Yes
== END 2018-08-23 09:55 | disposition home or self-care (01) ==
LOC: ER 16:13 → EH 19:38 → 4S 20:48
PROVIDERS: ADMIT Internal Medicine; ATTEND Internal Medicine
DX: I25.110 Atherosclerotic heart disease of native coronary artery with unstable angina pectoris (principal); E78.5 Hyperlipidemia, unspecified; R73.9 Hyperglycemia, unspecified; E66.9 Obesity, unspecified; I10 Essential (primary) hypertension; I49.3 Ventricular premature depolarization; I25.2 Old myocardial infarction; Z68.41 Body mass index [BMI] 40.0-44.9, adult; Z79.899 Other long term (current) drug therapy; Z79.82 Long term (current) use of aspirin; Z79.02 Long term (current) use of antithrombotics/antiplatelets; Z95.1 Presence of aortocoronary bypass graft; Z95.5 Presence of coronary angioplasty implant and graft; Z90.49 Acquired absence of other specified parts of digestive tract; Z87.891 Personal history of nicotine dependence; Z82.49 Family history of ischemic heart disease and other diseases of the circulatory system
CPT/HCPCS: 93005 ×2; 99285; 36415 ×2; 82553 ×2; 82550 ×2; 83735; 85025 ×2; 80048; 80053; 84484 ×2; 83036; 85379; 80061; 71046; 93010 ×2; G0378 ×4; A9270 ×17; J3490 ×3

== ENCOUNTER → 2018-08-25 | Outpatient (CLI) | payer MEDICARE, BC ==
[2018-08-25 11:52] LABS: INTERNATIONAL RATION (INR) 0.96; PROTHROMBIN TIME 13.3 SEC (11.4-15.4)
[2018-08-25 11:53] LABS: PARTIAL THROMBOPLASTIN TIME 25.8 SEC (23.5-35.8)
== END ==
LOC: OD 11:00
PROVIDERS: ATTEND Internal Medicine
DX: R07.2 Precordial pain (principal); R06.02 Shortness of breath; Z95.5 Presence of coronary angioplasty implant and graft; I36.1 Nonrheumatic tricuspid (valve) insufficiency; I10 Essential (primary) hypertension; I25.2 Old myocardial infarction; I73.9 Peripheral vascular disease, unspecified; K21.9 Gastro-esophageal reflux disease without esophagitis; M15.9 Polyosteoarthritis, unspecified; G47.9 Sleep disorder, unspecified; R09.89 Other specified symptoms and signs involving the circulatory and respiratory systems; Z79.899 Other long term (current) drug therapy
CPT/HCPCS: 36415; 85610; 85730

== ENCOUNTER → 2019-02-11 | Outpatient (CLI) | payer MEDICARE, BC ==
[2019-02-11 10:26] LABS: ALANINE AMINOTRANSFERASE 30 U/L (21-72); ALBUMIN 3.8 g/dL (3.5-5.0); ALKALINE PHOSPHATASE 65 U/L (38-126); ASPARTATE AMINO TRANSFERASE 29 U/L (17-59); BILIRUBIN,DIRECT 0.3 mg/dL (0.0-0.4); BILIRUBIN,TOTAL 1.5 mg/dL (0.2-1.3); TOTAL PROTEIN 6.6 g/dL (6.3-8.2); TRIGLYCERIDES 198 mg/dL (<150)
[2019-02-11 10:37] LABS: DIRECT LDL 39 mg/dL (<100)
[2019-02-11 10:42] LABS: VLDL CHOLESTEROL 39.6 mg/dL (10-31)
== END ==
LOC: OD 09:18
PROVIDERS: ATTEND Specialist
DX: E66.01 Morbid (severe) obesity due to excess calories (principal); R06.02 Shortness of breath; Z95.1 Presence of aortocoronary bypass graft; Z95.5 Presence of coronary angioplasty implant and graft; I36.1 Nonrheumatic tricuspid (valve) insufficiency; I10 Essential (primary) hypertension; I25.2 Old myocardial infarction; I73.9 Peripheral vascular disease, unspecified; K21.9 Gastro-esophageal reflux disease without esophagitis; M15.9 Polyosteoarthritis, unspecified; G47.9 Sleep disorder, unspecified; E78.49 Other hyperlipidemia; I25.10 Atherosclerotic heart disease of native coronary artery without angina pectoris; Z98.61 Coronary angioplasty status
CPT/HCPCS: 36415; 80061; 80076

== ENCOUNTER → 2019-05-06 | Outpatient (CLI) | payer MEDICARE, BC ==
[2019-05-06 09:56] LABS: ABSOLUTE EOSINOPHILS # (AUTO) 0.2 10^3/uL (0.0-0.6); ABSOLUTE LYMPHOCYTES (AUTO) 1.6 10^3/uL (0.5-4.7); ABSOLUTE MONOCYTES (AUTO) 0.4 10^3/uL (0.1-1.4); ABSOLUTE NEUT (AUTO) 2.1 10^3/uL (1.7-8.2); BASOPHILS % (AUTO) 0.6 % (0-2); EOSINOPHILS % (AUTO) 3.7 % (0-6); HEMATOCRIT 43.6 % (37.9-51.0); LYMPHOCYTES % (AUTO) 37.8 % (13-45); MEAN CORPUSCULAR HEMOGLOBIN 29.3 pg (27.0-33.4); MEAN CORPUSCULAR HGB CONC 34.3 g/dL (32.0-36.0); MEAN CORPUSCULAR VOLUME 85 fl (80-97); MONOCYTES % (AUTO) 8.4 % (3-13); PLATELET COUNT 120 10^3/uL (150-450); RED BLOOD COUNT 5.11 10^6/uL (4.35-5.55); RED CELL DISTRIBUTION WIDTH 13.1 % (11.5-14.0); SEGMENTED NEUTROPHILS % (AUTO) 49.5 % (42-78); TOTAL CELLS COUNTED % (AUTO) 100 %; WHITE BLOOD COUNT 4.2 10^3/uL (4.0-10.5)
[2019-05-06 10:02] LABS: APPEARANCE,URINE CLEAR; BILIRUBIN,URINE NEGATIVE (NEGATIVE); COLOR,URINE YELLOW; GLUCOSE, URINE NEGATIVE (NEGATIVE); KETONES,URINE NEGATIVE (NEGATIVE); LEUKOCYTE ESTERASE,URINE NEGATIVE (NEGATIVE); NITRITE,URINE NEGATIVE (NEGATIVE); PROTEIN,URINE NEGATIVE (NEGATIVE); URINE SPECIFIC GRAVITY 1.018; UROBILINOGEN,URINE NEGATIVE mg/dL (<2.0)
[2019-05-06 10:28] LABS: ALANINE AMINOTRANSFERASE 36 U/L (21-72); ALBUMIN 3.9 g/dL (3.5-5.0); ALKALINE PHOSPHATASE 69 U/L (38-126); ANION GAP 8 (5-19); ASPARTATE AMINO TRANSFERASE 36 U/L (17-59); BILIRUBIN,DIRECT 0.2 mg/dL (0.0-0.4); BILIRUBIN,TOTAL 1.5 mg/dL (0.2-1.3); BLOOD UREA NITROGEN 21 mg/dL (7-20); CALCIUM 9.1 mg/dL (8.4-10.2); CARBON DIOXIDE 32 mmol/L (22-30); CHLORIDE 103 mmol/L (98-107); CHOLESTEROL 99.28 mg/dL (0-200); GLUCOSE 199 mg/dL (75-110); POTASSIUM 4.3 mmol/L (3.6-5.0); SODIUM 143.4 mmol/L (137-145); TOTAL PROTEIN 6.8 g/dL (6.3-8.2); TRIGLYCERIDES 206 mg/dL (<150)
[2019-05-06 10:40] LABS: VLDL CHOLESTEROL 41.2 mg/dL (10-31)
[2019-05-06 10:55] LABS: DIRECT LDL 39 mg/dL (<100)
[2019-05-07 10:36] LABS: CREATININE URINE 73.2 mg/dL (Not Estab.); MICROALBUMIN URINE 7.4 ug/mL (Not Estab.)
== END ==
LOC: OD 09:22
PROVIDERS: ATTEND Internal Medicine
DX: E11.8 Type 2 diabetes mellitus with unspecified complications (principal); E03.9 Hypothyroidism, unspecified; R10.9 Unspecified abdominal pain; E11.9 Type 2 diabetes mellitus without complications; E78.5 Hyperlipidemia, unspecified; N40.0 Benign prostatic hyperplasia without lower urinary tract symptoms
CPT/HCPCS: 36415; 80053; 80061; 81001; 82043; 82570; 83036; 84443; 85025

== ENCOUNTER → 2019-05-09 | Outpatient (CLI) | payer MEDICARE, BC ==
[2019-05-09 12:05] LABS: PLATELET COUNT 131 10^3/uL (150-450)
== END ==
LOC: OD 11:27
PROVIDERS: ATTEND Internal Medicine
DX: D69.6 Thrombocytopenia, unspecified (principal)
CPT/HCPCS: 36415; 85049

== ENCOUNTER → 2019-09-29 | Outpatient (CLI) | payer MEDICARE, BC | LOC: OD 16:51 | PROVIDERS: ATTEND Otolaryngology | DX: J30.9 Allergic rhinitis, unspecified (principal) | CPT/HCPCS: 36415; 82785; 86003 ==

== ENCOUNTER → 2019-10-08 | Outpatient (CLI) | payer MEDICARE, BC ==
--- NOTE | 2019-10-08 13:43 | RADIOLOGY REPORT (SQ) ---
EXAM DESCRIPTION: CT SINUSES FOR ENT COMPLETED DATE/TIME: 10/08/2019 9:48 am REASON FOR STUDY: (J01.91)ACUTE RECURRENT SINUSITIS, UNSPECIFIED J01.91 ACUTE RECURRENT SINUSITIS, UNSPECIFIED COMPARISON: None. TECHNIQUE: Noncontrast scanning through the paranasal sinuses using bone algorithm. Reconstructed MPR images reviewed. All images stored on PACS. All CT scanners at this facility use dose modulation, iterative reconstruction, and/or weight based d osing when appropriate to reduce radiation dose to as low as reasonably achievable (ALARA). [facility]: Dose Right [facility]: CareDose [facility]: Dose Right [facility]: Teradose 4D [facility]: [employer] RADIATION DOSE: 49mGy. LIMITATIONS: None. FINDINGS: Right sinuses and drainage pathways: Post-surgical changes: None. Frontal sinus: Completely opacified Frontoethmoidal Recess: Completely opacified Anterior Ethmoid Sinuses: Completely opacified Posterior Ethmoid Sinuses: Clear Sphenoid Sinus: Clear Sphenoethmoidal Recess: Clear Maxillary Sinus: Completely opacified Ostiomeatal Complex: Completely opacified, demineralized Left Sinuses and Drainage Pathways: Post-surgical changes: None. Frontal sinus: Completely opacified Frontoethmoidal Recess: Completely opacified Anterior Ethmoid Sinuses: Completely opacified Posterior Ethmoid Sinuses: Clear Sphenoid Sinus: Clear Sphenoethmoidal Recess: Clear Maxillary Sinus: Completely opacified Ostiomeatal Complex: Completely opacified, demineralized Right Olfactory Fossa: No polyps. Left Olfactory Fossa: No polyps. Middle Turbinate Alison Bullosa: No. Paradoxical Middle Turbinate: No. Atelectatic Uncinated Process: No. Frontal Rito Cell Type I: No. Frontal Rito Cell Type II: No. Interfrontal Sinus Septal Cell: None. Supra-Orbital Ethmoid: None. Frontal Bullar Cell: None. Suprabullar Bullar Cell: None. Sphenoethmoidal (On[place]) Cell: None. Pneumatization of the Anterior Clinoid Processes: No Hypoplastic Maxillary Sinus: None. Osteoneogenesis: None. Bone Dehiscence:None. Nasal Cavity: Normal. Nasal Septum: Midline Pneumatized bilateral pterygoid recesses The bilateral middle ear cavities and mastoid air cells are clear Anatomic Variants: Right Vidian Canal: Normal. Left Vidian Canal: Normal. IMPRESSION: Complete opacification of the bilateral frontal, anterior ethmoid, and bilateral maxilla ry sinuses with demineralization of the ethmoid septa and bony ostiomeatal complexes bilaterally. TECHNICAL DOCUMENTATION: JOB ID: [id number] Quality ID # [id number]: Final reports with documentation of one or more dose reduction techniques (e.g., Au tomated exposure control, adjustment of the mA and/or kV according to patient size, use of iterative reconstruction technique) 2010 [employer]- All Rights Reserved Reading location - IP/workstation name: [id number]
== END ==
LOC: RAD 09:06
PROVIDERS: ATTEND Otolaryngology
DX: J01.91 Acute recurrent sinusitis, unspecified (principal)
CPT/HCPCS: 70486

== ENCOUNTER 2019-10-10 11:17 | Emergency (ER) | payer MEDICARE, BC ==
[2019-10-10 12:03] LABS: ABSOLUTE EOSINOPHILS # (AUTO) 0.2 10^3/uL (0.0-0.6); ABSOLUTE LYMPHOCYTES (AUTO) 1.9 10^3/uL (0.5-4.7); ABSOLUTE MONOCYTES (AUTO) 0.5 10^3/uL (0.1-1.4); ABSOLUTE NEUT (AUTO) 2.7 10^3/uL (1.7-8.2); BASOPHILS % (AUTO) 0.4 % (0-2); EOSINOPHILS % (AUTO) 3.2 % (0-6); HEMATOCRIT 42.9 % (37.9-51.0); HEMOGLOBIN 14.9 g/dL (13.5-17.0); MEAN CORPUSCULAR HEMOGLOBIN 29.3 pg (27.0-33.4); MEAN CORPUSCULAR HGB CONC 34.6 g/dL (32.0-36.0); MEAN CORPUSCULAR VOLUME 85 fl (80-97); PLATELET COUNT 100 10^3/uL (150-450); RED BLOOD COUNT 5.07 10^6/uL (4.35-5.55); RED CELL DISTRIBUTION WIDTH 13.5 % (11.5-14.0); SEGMENTED NEUTROPHILS % (AUTO) 51.4 % (42-78); TOTAL CELLS COUNTED % (AUTO) 100 %; WHITE BLOOD COUNT 5.3 10^3/uL (4.0-10.5)
[2019-10-10 12:22] LABS: ALBUMIN 3.9 g/dL (3.5-5.0); ALKALINE PHOSPHATASE 60 U/L (38-126); ANION GAP 8 (5-19); ASPARTATE AMINO TRANSFERASE 29 U/L (17-59); BILIRUBIN,DIRECT 0.2 mg/dL (0.0-0.4); BILIRUBIN,TOTAL 0.7 mg/dL (0.2-1.3); BLOOD UREA NITROGEN 17 mg/dL (7-20); CARBON DIOXIDE 28 mmol/L (22-30); CHLORIDE 104 mmol/L (98-107); CREATINE KINASE 178 U/L (55-170); GLUCOSE 92 mg/dL (75-110); POTASSIUM 4.4 mmol/L (3.6-5.0)
[2019-10-10 12:35] LABS: CREATINE KINASE MB 3.06 ng/mL (<4.55)
[2019-10-10 12:43] LABS: TROPONIN I < 0.012 ng/mL
--- NOTE | 2019-10-10 13:56 | RADIOLOGY REPORT (SQ) ---
EXAM DESCRIPTION: CHEST 2 VIEWS COMPLETED DATE/TIME: 10/10/2019 1:37 pm REASON FOR STUDY: Chest pain COMPARISON: 08/21/2018 EXAM PARAMETERS: NUMBER OF VIEWS: two views TECHNIQUE: Digital Frontal and Lateral radiographic views of the chest acquired. RADIATION DOSE: NA LIMITATIONS: none FINDINGS: LUNGS AND PLEURA: No opacities, masses or pneumothorax. No pleural effusion. MEDIASTINUM AND HILAR STRUCTURES: No masses or contour abnormalities. HEART AND VASCULAR STRUCTURES: Heart normal size. No evidence for failure. Aortic atherosclerosis BONES: No acute findings. HARDWARE: Sternotomy hardware. OTHER: No other significant finding. IMPRESSION: No evidence of acute cardiopulmonary process. TECHNICAL DOCUMENTATION: JOB ID: [id number] [email or web address]- All Rights Reserved Reading location - IP/workstation name: [email or web address]
--- NOTE | 2019-10-10 14:49 | ER Document Report ---
ED General - General Chief Complaint: Chest Pain Stated Complaint: CHEST PAIN Time Seen by Provider: 10/10/19 12:06 Primary Care Provider: VIKTORIYA KOHLER MD [Primary Care Provider] - Follow up as needed Notes: 69 year old male with extensive h/o cad cabg x 6 in 2001, 2 coronary stents in the past 4 years, htn and hld. He is a pt of Dr. 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 TRAVEL OUTSIDE OF THE [place] IN LAST 30 DAYS: No - Related Data Allergies/Adverse Reactions: No Known Allergies Allergy (Verified 10/10/19 11:26) Past Medical History - Social History Smoking Status: Former Smoker Chew tobacco use (# tins/day): No Frequency of alcohol use: None Drug Abuse: None Family History: CAD Patient has suicidal ideation: No Patient has homicidal ideation: No - Past Medical History Cardiac Medical History: Reports: Hx Heart Attack, Hx Hypertension Denies: Hx Coronary Artery Disease Pulmonary Medical History: Denies: Hx Asthma, Hx Bronchitis, Hx COPD, Hx Pneumonia Neurological Medical History: Denies: Hx Cerebrovascular Accident, Hx Seizures Endocrine Medical History: Reports: Hx Diabetes Mellitus Type 2 Renal/ Medical History: Denies: Hx Peritoneal Dialysis Musculoskeletal Medical History: Denies Hx Arthritis Psychiatric Medical History: Denies: Hx Depression Past Surgical History: Reports: Hx Cardiac Catheterization - Stent, Hx Cardiac Surgery - Open Heart Surgery, bypass x6, Hx Cholecystectomy, Hx Coronary Artery Bypass Graft, Hx Coronary Stent - Immunizations Hx Diphtheria, Pertussis, Tetanus Vaccination: Yes Review of Systems - Review of Systems Constitutional: No symptoms reported EENT: No symptoms reported Cardiovascular: See HPI, Chest pain Respiratory: No symptoms reported Gastrointestinal: See HPI Genitourinary: No symptoms reported Male Genitourinary: No symptoms reported Musculoskeletal: No symptoms reported Skin: No symptoms reported Hematologic/Lymphatic: No symptoms reported Neurological/Psychological: No symptoms reported Physical Exam - Vital signs Vitals: Temp 97.9 F 10/10/19 11:17 Interpretation: Normal - General General appearance: Appears well, Alert - HEENT Head: Normocephalic, Atraumatic Eyes: Normal Pupils: PERRL - Respiratory Respiratory status: No respiratory distress Chest status: Nontender Breath sounds: Normal Chest palpation: Normal - Cardiovascular Rhythm: Regular Heart sounds: Normal auscultation Murmur: No - Abdominal Inspection: Normal Distension: No distension Bowel sounds: Normal Tenderness: Nontender Organomegaly: No organomegaly - Back Back: Normal, Nontender - Extremities General upper extremity: Normal inspection, Nontender, Normal color, Normal ROM, Normal temperature General lower extremity: Normal inspection, Nontender, Normal color, Normal ROM, Normal temperature, Normal weight bearing. No: Senthil's sign - Neurological Neuro grossly intact: Yes Cognition: Normal Orientation: AAOx4 [place] Coma Scale Eye Opening: Spontaneous [place] Coma Scale Verbal: Oriented Louie Coma Scale Motor: Obeys Commands [place] Coma Scale Total: 15 Speech: Normal Motor strength normal: LUE, RUE, LLE, RLE Sensory: Normal - Psychological Associated symptoms: Normal affect, Normal mood - Skin Skin Temperature: Warm Skin Moisture: Dry Skin Color: Normal Course - Re-evaluation Re-evalutation: 10/10/19 15:01 MDM 69 year old with unstable angina arrives with known cad. Objective workup here is ok and I have just spoken with [facility] and waiting for call back by them. 10/10/19 17:50 I have discussed the pt with Dr. Ty - hospitalist at [facility] - who as graciously accepted the pt in transfer to [facility] after discussing with Dr. Hernandez. - Vital Signs Vital signs: Temp Pulse Resp BP Pulse Ox 97.9 F 18 131/68 H 96 10/10/19 17:35 10/10/19 17:35 10/10/19 17:00 10/10/19 17:35 - Laboratory Result Diagrams: 10/10/19 11:46 10/10/19 11:46 Laboratory results interpreted by me: 10/10/19 10/10/19 11:46 11:46 Plt Count 100 L Creatine Kinase 178 H - Diagnostic Test Radiology reviewed: Image reviewed, Reports reviewed - EKG Interpretation by Me EKG shows normal: Sinus rhythm Rate: Bradycardia - Sinus Marcus [address] elevation or depression my int erpretation. Critical Care Note - Critical Care Note Total time excluding time spent on procedures (mins): 30 Discharge - Discharge Clinical Impression: Exertional chest pain, Unstable angina Condition: Fair Disposition: [facility] Referrals: VIKTORIYA KOHLER MD [Primary Care Provider] - Follow up as needed
--- NOTE | 2019-10-10 15:07 | EKG REPORT ---
SEVERITY:- NORMAL ECG - SINUS RHYTHM : Confirmed by: Loretta Domingo MD 10-Oct-2019 15:07:02
[2019-10-11 00:24] VITALS: BP 116/76
--- NOTE | 2019-10-11 01:15 | ER Document Report ---
Doctor's Note Notes: 10/11/19 01:14 Care of this patient was turned over to me. 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 The patient was resting comfortably when I went in to evaluate him. He denies any chest pain or trouble breathing. He states his only complaint right now is that he is very tired. Vital signs were reviewed, chart reviewed, patient is stable for transport.
== END 2019-10-11 01:34 | disposition short-term general hospital (02) ==
LOC: ER 11:17
DX: R07.89 Other chest pain (principal); I25.10 Atherosclerotic heart disease of native coronary artery without angina pectoris; I10 Essential (primary) hypertension; E78.5 Hyperlipidemia, unspecified; Z87.891 Personal history of nicotine dependence; I25.2 Old myocardial infarction; E11.9 Type 2 diabetes mellitus without complications
CPT/HCPCS: 36415; 71046; 80053; 82550; 82553; 83735; 84484; 85025; 93005; 93010; 99291

== ENCOUNTER → 2020-01-05 | Outpatient (CLI) | payer MEDICARE, BC ==
[2020-01-05 08:44] LABS: ALBUMIN 4.1 g/dL (3.5-5.0); ALKALINE PHOSPHATASE 68 U/L (38-126); ANION GAP 6 (5-19); ASPARTATE AMINO TRANSFERASE 36 U/L (17-59); BILIRUBIN,TOTAL 0.4 mg/dL (0.2-1.3); BLOOD UREA NITROGEN 18 mg/dL (7-20); CARBON DIOXIDE 30 mmol/L (22-30); CHLORIDE 106 mmol/L (98-107); GLUCOSE 94 mg/dL (75-110); TOTAL PROTEIN 6.9 g/dL (6.3-8.2); TRIGLYCERIDES 80 mg/dL (<150)
[2020-01-05 08:58] LABS: DIRECT LDL 48 mg/dL (<100)
== END ==
LOC: OD 07:37
PROVIDERS: ATTEND Family Medicine
DX: E78.5 Hyperlipidemia, unspecified (principal); E11.9 Type 2 diabetes mellitus without complications
CPT/HCPCS: 36415; 80053; 80061; 83036

== ENCOUNTER → 2020-02-01 | Outpatient (CLI) | payer MEDICARE, BC ==
[~2020-02-01] MED LIST changes: -EPINEPHRINE INJ 1 MG/10 ML DISP.SYRIN ONE; -FENTANYL CITRATE INJ/PF 100 MCG/2 ML AMPUL ONE; -FLUMAZENIL INJ 0.5 MG/5 ML VIAL ONE; -GLUCAGON,HUMAN RECOMB 1 MG INJ ONE; -GLYCOPYRROLATE INJ 0.4 MG/2 ML VIAL ONE; -MIDAZOLAM 2 MG/2 ML INJ ONE; -NALOXONE HCL INJ/PF 0.4 MG/1 ML SDV ONE; -ONDANSETRON HCL INJ/PF 4 MG/2 ML SDV ONE; +REGADENOSON INJ 0.4 MG/5 ML DISP.SYRIN IV ONE
--- NOTE | 2020-02-01 11:04 | DRAGON STRESS TEST REPORT ---
Pharmacological stress test was performed with regadenoson using the standard protocol. The heart rate was 60 beats per minute at rest and brian to 78 beats per minutes during the infusion of regadenoson. The resting blood pressure was 124/64 mmHg which increased to 132/66 mmHg which is a hypertensive response. The patient developed the following symptoms: Shortness of breath. The resting electrocardiogram demonstrated normal sinus rhythm with nonspecific ST-T wave changes and did not show ST segment changes consistent with myocardial ischemia. Myocardial perfusion imaging was performed following the injection of 15.53 mCi. At peak pharmacologic effect, the patient was injected with 44.8 mCi. Gating poststress tomographic imaging was performed 60minutes after stress. Findings: The overall quality of the study is good. The following artifacts were present: None. Left ventricular cavity is noted to be enlarged on the rest and stress studies. Resting images demonstrate a small sized, of mild intensity perfusion defect in the inferior wall. Stress images demonstrate a small sized, of moderate intensity perfusion defect in the inferior and inferolateral segments along with a small sized, moderate intensity perfusion defect in the anterior/anterolateral segments. Gated SPECT imaging reveals normal myocardial thickening and wall motion. The left ventricular ejection fraction was calculated to be 64 %. Impression: -Myocardial perfusion imaging is abnormal. -There is evidence of a small scar in the inferior wall with a mild degree of coexistent ischemia in both the inferior and inferolateral segments as well as evidence of ischemia in the anterior/anterolateral segments. -Left ventricular systolic function is normal. MTDD
== END ==
LOC: RAD 07:08
PROVIDERS: ATTEND Internal Medicine Cardiovascular Disease
DX: I25.10 Atherosclerotic heart disease of native coronary artery without angina pectoris (principal)
CPT/HCPCS: 93017; 78452; A9500; J2785; Q9969